=== PATIENT | male | born 1995 | race Caucasian/White ===

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

== ENCOUNTER 2017-06-06 10:28 | Emergency (ER) | payer OTHER ==
[~2017-06-06] VITALS: Ht 177.8 cm; Wt 66.0 kg
[2017-06-06 10:39] VITALS: Ht 177.8 cm; Wt 66.0 kg
[2017-06-06] MEDS ORDERED: IBUPROFEN 600 MG TAB PO STA (11:22)
--- NOTE | 2017-06-06 11:31 | EMERGENCY ROOM VISIT NOTE ---
ED Visit Note First contact with patient: 11:02 CHIEF COMPLAINT / HISTORY OF PRESENT ILLNESS: This is a 21-year-old male who presents to the emergency department with complaint of sore throat for the past 4 days. He reports increasing pain in the throat over the past day, worse with swallowing. He has not tried any medications or other treatments for his sore throat. He has had some fevers and chills with this, as well as congestion, but no cough, denies any neck pain or stiffness, nausea or vomiting, headaches, ear pain, or rash. No difficulty breathing. Symptoms came on gradually. There has been no chest pain, no abdominal pain. Positive sick contacts with similar symptoms. He reports he is fully immunized. REVIEW OF SYSTEMS: A complete 10 point review of systems was reviewed with the patient with pertinent positives and negatives as per history of present illness. All else were negative. PMH: The patient is healthy; there is no significant medical or surgical history. SOCIAL HISTORY: Patient lives at home, he is a [employer] student. He denies tobacco use. PHYSICAL EXAM: Vital Signs: Reviewed Nurse's notes. CONSTITUTIONAL: Pleasant and cooperative. No acute distress. Mildly dehydrated , but otherwise well appearing and well nourished. HEENT: Normocephalic, atraumatic. PERRL, EOMI. TMs normal. Pharynx mildly erythematous, but no edema or exudate. No trismus, no uvular deviation. Tacky mucous membranes. NECK: Supple, full active range of motion without discomfort. Bilateral anterior cervical adenopathy is tender to palpation. RESPIRATORY: Clear to auscultation bilaterally with no wheezing, crackles, rhonchi or stridor. Equal expansion bilaterally. CARDIOVASCULAR: Regular rate and rhythm with no murmurs, rubs or gallops. Normal peripheral perfusion. No edema. GASTROINTESTINAL: Soft, nontender, nondistended. No palpable masses or HSM. Bowel sounds present in all quadrants. MUSCULOSKELETAL: Full range of motion of all joints without discomfort. INTEGUMENTARY: No rash or other significant dermatologic conditions noted. NEUROLOGIC: Alert and oriented X 4 with normal affect. No focal neurologic deficits noted. Normal speech. ED COURSE: I examined the patient. Differential diagnosis includes viral pharyngitis, strep throat, mononucleosis, dehydration, among others. Rapid strep was done, this is negative. Patient declined testing for mono spot. Patient was treated with Motrin and oral fluids for hydration, defervesced appropriately and tachycardias downtrending. The patient states that his throat pain is much improved after the Motrin as well. Patient was updated on results and plan for discharge, he was encouraged to follow up with his PCP or [facility] for any persistent symptoms. He was also given strict return precautions should his symptoms worsen, he verbalized understanding. She was discharged home in stable condition and ambulatory. Current/Historical Medications No Active Prescriptions or Reported Meds Allergies Coded Allergies: No Known Allergies (Unverified , 06/06/16) Vital Signs Date Time Temp Pulse Resp B/P (MAP) Pulse Ox O2 Delivery O2 Flow Rate FiO2 06/06/17 12:30 37.2 103 20 134/86 97 Room Air 06/06/17 11:10 98 Room Air 06/06/17 10:39 37.9 120 20 115/71 99 Room Air Medications Administered Medications (Trade) Dose Ordered Sig/Nathan Route Start Time Stop Time Status Last Admin Dose Admin Ibuprofen (Motrin Tab) 600 mg NOW STAT PO 06/06/17 11:22 06/06/17 11:25 DC 06/06/17 11:37 600 MG Departure Information Impression Primary Impression: Acute pharyngitis Dispostion Home / Self-Care Condition GOOD Prescriptions No Active Prescriptions or Reported Meds Referrals No Doctor, Assigned (PCP) Patient Instructions ED Pharyngitis Viral, [facility] Additional Instructions You were seen in the emergency department for your sore throat. The results of your rapid strep screen were found to be NEGATIVE. You will be contacted in 48- 72 hrs with the results of your pending strep culture. For pain and fever control, you can use the following [id number] medicines (if >12 yo): - Regular strength (325mg/tab) Tylenol (acetaminophen) 2 tabs every 4-6 hours as needed. Do not exceed 10 tablets in a 24 hour period. Avoid taking more than 3000 mg of Tylenol per day. This includes any other sources of acetaminophen you may take on a regular basis. - Regular strength (200 mg/tab) Advil (ibuprofen) 3 tabs every 6-8 hours as needed. Do not exceed a dose of 2400 mg per day. - For best results, alternate dosing of Tylenol and Advil every 3-4 hours. In addition to medications, you can also use the following home remedies: - Warm salt-water gargles 3 times per day can soothe your throat and help to fight infection. - Warm tea with honey can soothe your throat. - Cepacol lozenges, Chloraseptic throat sprays - to help soothe the throat. Return to the emergency department if your symptoms persist or worsen over the next 2-3 days despite treatment course outlined above. Return to the emergency department if you develop the following symptoms of: inability to swallow solids , liquids, or drool; excessive wheezing or inability to catch your breath; or intractable fever or pain. Follow up with your primary care provider in 2-3 days from today's emergency department visit. School Instructions Return To School: 2 days Problem Qualifiers Primary Impression: Acute pharyngitis Pharyngitis/tonsillitis etiology: unspecified etiology Qualified Codes: J02.9 - Acute pharyngitis, unspecified
[2017-06-06 12:30] VITALS: BP 134/86; PULSE 103; TEMP 37.2; O2SAT 97
== END 2017-06-06 12:47 | disposition home or self-care (01) ==
LOC: C.EDB 10:30 → C.EDD 12:47
DX: J02.9 Acute pharyngitis, unspecified (principal)